=== PATIENT | male | born 1965 | race Caucasian/White ===

== ENCOUNTER 2023-11-29 14:05 | Emergency (ER) | payer OTHER, SELFPAY ==
[2023-11-29] VITALS (10 sets, daily range): BP systolic 156–188; BP diastolic 98–104; PULSE 69–87; RESP 16; TEMP 36.6; O2SAT 95–98
--- NOTE | 2023-11-29 14:39 | CRLHL7_ITS ---
For Patients: As a result of the Century Cures Act, medical imaging exams and procedure reports are released immediately into your electronic medical record. You may view this report before your referring provider. If you have questions, please contact your health care provider. INDICATION: Intermittent headaches, hypertension TECHNIQUE: CT head without contrast. COMPARISON: None. FINDINGS: CSF spaces: Within normal limits. Brain parenchyma and extra-axial spaces: The cadena-white differentiation is normal. No sign of mass, hemorrhage, or midline shift. No extra-axial fluid collection. Skull base and calvarium: The mastoid air cells demonstrate no acute or significant findings. There is some mucosal thickening in the right maxillary sinus which can be seen with sinusitis; otherwise, the remaining paranasal sinuses are clear. The visualized orbits are grossly unremarkable. No skull fractures. IMPRESSION: No CT evidence of an acute intracranial abnormality. Please note that all CT scans at this facility use dose modulation, iterative reconstruction, and/or weight-based dosing when appropriate to reduce radiation dose to as low as reasonably achievable. Dictated by Yehuda Damon MD @ 11/29/2023 3:13:46 PM (Electronically Signed)
--- NOTE | 2023-11-29 14:40 | ED.GENADULT ---
HPI - General Adult General Date Seen: 11/29/23 Chief complaint: Neuro Symptoms/Altered Deficit Stated complaint: headache, hypertension Time Seen by Provider: 11/29/23 14:23 Source: patient, RN notes reviewed and senior interactive producer Mode of arrival: ambulatory Limitations: language barrier History of Present Illness HPI narrative: Patient is a 58-year-old male who was sent here from clinic for evaluation of intermittent headaches since last June. He tells me that he gets a headache once or twice a week, they are mild, he takes some aspirin which does help. Every once in a while he see some spots in his vision although not today. He has not had loss of vision, double vision, or other residual complaints. He does have a little bit of a headache today although it is already better than it was earlier. He has not had any trauma or fevers. He has not had any other neurologic symptoms. He is noted to be hypertensive. He tells me that he was seen last June in clinic and they had a discussion about his blood pressure it sounds like they were planning on using diet and lifestyle modification prior to trying medications. He denies other medical history. He does not smoke. Related Data Previous Rx's Medication Instructions Recorded lisinopril 20 mg tablet 20 mg PO DAILY #14 tabs 11/29/23 Allergies Allergy/AdvReac Type Severity Reaction Status Date / Time sulfamethoxazole Allergy Unknown Verified 11/29/23 14:21 [From Bactrim] trimethoprim [From Bactrim] Allergy Unknown Verified 11/29/23 14:21 Review of Systems Status of ROS: Reports: 10 or more systems reviewed and unremarkable except as noted in History and below Exam Narrative: Exam Narrative: Vital signs as noted above. In general, an alert, well-appearing patient. Head: Normocephalic, atraumatic. Eyes: Pupils are equal reactive. Extraocular movements are full. Conjunctivae are normal. ENT: Mucous membranes are moist. No temporal tenderness. Neck: Supple without lymphadenopathy. No meningeal signs. Heart: Regular rate and rhythm. No murmur or rub. Lungs: Clear bilaterally. No increased work of breathing, crackles or wheezes. Abdomen: Soft and nontender. No organomegaly. Extremities: Well perfused. No edema. No calf tenderness. Pulses intact. Neurologic: Patient is alert and oriented to person and place. Speech is fluent. Face is symmetric. Moves all extremities equally. Affect: Normal. Skin: Warm and dry. Well perfused. Const: Vital Signs, click to edit/add: Vital Signs - 24 hr 11/29/23 14:09 11/29/23 14:30 11/29/23 14:31 Temperature 97.8 F Pulse Rate 75 76 Pulse Rate [Pulse Oximeter] 87 Respiratory Rate 16 Blood Pressure 186/98 H Blood Pressure [Ri ght Upper Arm] 188/104 H Pulse Oximetry 98 98 97 Oxygen Delivery Me thod Room Air 11/29/23 14:45 11/29/23 15:00 11/29/23 15:15 Temperature Pulse Rate 73 76 74 Pulse Rate [Pulse Oximeter] Respiratory Rate Blood Pressure Blood Pressure [Ri ght Upper Arm] Pulse Oximetry 96 96 96 Oxygen Delivery Me thod 11/29/23 15:19 11/29/23 15:24 11/29/23 15:30 Temperature Pulse Rate 69 74 Pulse Rate [Pulse Oximeter] Respiratory Rate Blood Pressure 156/99 H Blood Pressure [Ri ght Upper Arm] Pulse Oximetry 95 97 Oxygen Delivery Me thod 11/29/23 15:46 Temperature Pulse Rate Pulse Rate [Pulse Oximeter] Respiratory Rate Blood Pressure 164/104 H Blood Pressure [Ri ght Upper Arm] Pulse Oximetry Oxygen Delivery Me thod Documenting provider has reviewed patient's vital signs: yes Course Course ED Course: Patient presents with intermittent mild headaches for a number of months now. He is hypertensive which I think is likely an incidental finding, but will do head CT to rule out any kind of hemorrhage or mass. His neurologic exam is normal. He has intermittent nonspecific ?dots in his vision which is also likely a benign finding, but I did recommend that he be seen by an eye clinic in the next couple of weeks for further evaluation as he has not had his eyes checked in quite some time. He did have an EKG here which showed a sinus rhythm, ventricular rate of 86 beats per minute. He has no acute ST segment changes, unremarkable T-waves. Overall has benign sounding headaches, which have been ongoing for quite some time without progression. Did recommend that we start him on a blood pressure medicine today and then would recommend outpatient follow-up. CT read as negative by radiology. Plan as above, prescribed Lisinopril 20 mg daily. Follow up in clinic in the next couple of weeks for reassessment and to gauge response to Lisinopril. Vital Signs Vital signs: Initial Vital Signs Temperature 97.8 F 11/29/23 14:09 Temperature Source Temporal Artery Scan 11/29/23 14:09 Pulse Rate 87 11/29/23 14:09 Respiratory Rate 16 11/29/23 14:09 Blood Pressure 188/104 H 11/29/23 14:09 Blood Pressure Mean 132 H 11/29/23 14:09 Blood Pressure Position Sitting 11/29/23 14:09 Pulse Oximetry 98 11/29/23 14:09 Oxygen Delivery Method Room Air 11/29/23 14:09 Vital Signs Temperature 97.8 F 11/29/23 14:09 Pulse Rate 87 11/29/23 14:09 Respiratory Rate 16 11/29/23 14:09 Blood Pressure 188/104 H 11/29/23 14:09 Pulse Oximetry 98 11/29/23 14:09 Oxygen Delivery Method Room Air 11/29/23 14:09 Temperature 97.8 F 11/29/23 14:09 Pulse Rate 74 11/29/23 15:30 Respiratory Rate 16 11/29/23 14:09 Blood Pressure 164/104 H 11/29/23 15:46 Pulse Oximetry 97 11/29/23 15:30 Oxygen Delivery Method Room Air 11/29/23 14:09 Discharge Plan Discharge Clinical Impression: Headache, High blood pressure Patient Disposition: Home, Self-Care Condition: Stable Instructions: Hypertension (ED), General Headache (ED) Additional Instructions: Your CT scan today is normal, there is no evidence of bleeding or other abnormality in your brain. Your blood pressure is significantly elevated here, and I would recommend that we start you on blood pressure medication. I will prescribe lisinopril for you, and you should see someone in the clinic in the next couple of weeks for recheck to see how that medication is working for you. You can continue to take aspirin or Tylenol if needed for headaches. I would recommend that you see an eye doctor for a general eye checkup. Locally, 1 option is [facility], their phone number [phone]. For severe or worsening symptoms, return at any time to the emergency department. Prescriptions: New lisinopril 20 mg tablet 20 mg PO DAILY Qty: 14 2RF Follow Up/Referrals: Provider,Not a Local [Primary Care Provider] - Stand Alone Forms: [employer] Info Instructions
--- NOTE | 2023-11-29 15:49 | ED.NURSE ---
ipad interrupter used for D/C instructions. Pt had no further questions.
== END 2023-11-29 15:50 | disposition home or self-care (01) ==
PROVIDERS: Emergency Provider Emergency Medicine
DX: R51.9 Headache, unspecified (principal); R03.0 Elevated blood-pressure reading, without diagnosis of hypertension
CPT/HCPCS: 70450; 99284